=== PATIENT | male | born 1960 | race Caucasian/White ===

== ENCOUNTER 2016-07-09 12:57 | Emergency (ER) | payer BC ==
[~2016-07-09] VITALS: Ht 172.7 cm; Wt 68.0 kg
[2016-07-09 13:13] VITALS: BP 147/88; PULSE 99; RESP 15; TEMP 97.1; O2SAT 95
--- NOTE | 2016-07-09 13:18 | NUR ---
Pt to bed 7, placed in gown for evaluation
--- NOTE | 2016-07-09 13:20 | NUR ---
pt. presented to ER AAOx4 c/o " generalized body weakness for weeks now" states that Dr. Carpenter pt.'s PCP had given hin a referal to neurologist however today the pain in his legs was bothering him too much, states pain radiates to upper body, pain 6/10, states he has been starting to loose balance, denies N/V/D, states Hx of Falls, clear speech, follows commands, lungs clear to auscultation, denies SOB, denies CP
--- NOTE | 2016-07-09 13:47 | NUR ---
DR. HARTMANN AT BEDSIDE EXAMINING THE PT.
--- NOTE | 2016-07-09 13:50 | NUR ---
X Ray at bedside
[2016-07-09 14:10] LABS: BASOPHILS % (AUTO) 0.5 % (0.0-2.0); HEMOGLOBIN 12.9 g/dL (14.0-18.0); LYMPHOCYTES # (AUTO) 1.1 K/uL (1.0-5.5); LYMPHOCYTES % (AUTO) 11.5 % (20.5-51.5); MEAN CORPUSCULAR HEMOGLOBIN 37 pg (27-31); MEAN CORPUSCULAR HGB CONC 34 % (32-36); MEAN CORPUSCULAR VOLUME 108 fL (79.0-98.0); MONOCYTES # (AUTO) 0.6 K/uL (0.0-1.0); MONOCYTES % (AUTO) 6.7 % (1.7-9.3); NEUTROPHILS # (AUTO) 7.6 K/uL (1.8-7.7); NEUTROPHILS % (AUTO) 81.3 % (40.0-70.0); PLATELET COUNT (AUTO) 163 K/uL (130-430); RED BLOOD CELL COUNT(AUTO) 3.52 MIL/uL (4.2-6.2); RED CELL DISTRIBUTION WIDTH 17.3 % (9.0-15.0); WHITE BLOOD COUNT (AUTO) 9.3 K/uL (4.8-10.8)
[2016-07-09 14:26] LABS: CALCIUM 7.9 mg/dL (8.4-11.0); CREATININE 0.7 mg/dL (0.55-1.30); POTASSIUM 3.8 mmol/L (3.5-5.1)
[2016-07-09 14:28] LABS: INR 1.1 (0.80-1.20); PROTHROMBIN TIME 12.2 SECS (9.5-12.5)
[2016-07-09 14:43] LABS: FREE T4 (FREE THYROXINE) 0.7 ng/dL (0.6-1.6); TOTAL BILIRUBIN 1.2 mg/dL (0.0-1.0); TOTAL PROTEIN, SERUM 7.3 g/dL (6.4-8.3)
--- NOTE | 2016-07-09 14:48 | NUR ---
pt. denies any medical Hx and denies taking any prescription medication
[2016-07-09 15:10] VITALS: BP 129/71; PULSE 78; RESP 17; TEMP 98; O2SAT 98
[2016-07-09 15:10] LABS: BILIRUBIN,URINE 2+ (NEGATIVE); BLOOD, URINE NEGATIVE (NEGATIVE); CLARITY/URINE CLEAR (CLEAR); KETONES,URINE 2+ (NEGATIVE); NITRITE, URINE NEGATIVE (NEGATIVE); PH,URINE 5.5 (5.0-8.0); PROTEIN URINE 1+ (NEGATIVE)
--- NOTE | 2016-07-09 15:10 | NUR ---
Patient given written and verbal discharge instructions and verbalizes understanding. ER MD DR. HARTMANN discussed with patient the results and treatment provided. Patient in stable condition. ID arm band removed. NO RX given. Patient educated on pain management and to follow up with PMD. Pain Scale 0/10 Opportunity for questions provided and answered.
[2016-07-09 15:21] LABS: COLOR,URINE AMBER (YELLOW); GLUCOSE,URINE NEGATIVE (NEGATIVE); LEUKOCYTE ESTERASE ,URINE 1+ (NEGATIVE)
[2016-07-09 15:23] LABS: BACTERIA,URINE FEW /HPF (None Seen); MUCUS,URINE 2+ /LPF (None Seen); RBC,URINE NONE SEEN /HPF (0-3)
== END 2016-07-09 15:10 | disposition home or self-care (01) ==
LOC: SED 12:57
DX: R53.1 Weakness (principal); R42 Dizziness and giddiness; R20.0 Anesthesia of skin
CPT/HCPCS: 36415; 71010; 80053; 81000-TC; 83880; 84439; 84484; 85025; 85610-TC; 93005; 99285

== ENCOUNTER 2016-07-10 09:29 | Emergency (ER) | payer BC ==
[~2016-07-10] VITALS: Ht 172.7 cm; Wt 68.0 kg
[2016-07-10 09:34] VITALS: BP_SYST 138
--- NOTE | 2016-07-10 09:42 | NUR ---
ambulated to bed 4
--- NOTE | 2016-07-10 09:55 | NUR ---
Dr. Mehta at bedside for evaluation. ER tests from yesterday reviewed with pt. Pt admits to chronic alcoholism and states that he wants help. Family at bedside.
[2016-07-10] MEDS ORDERED: ONDANSETRON 4 MG ODT TAB PO ONE (10:00)
[2016-07-10 10:09] VITALS: BP_SYST 138
--- NOTE | 2016-07-10 10:09 | NUR ---
Patient given written and verbal discharge instructions and verbalizes understanding. ER MD discussed with patient the results and treatment provided. Given referals for outpatient substance and alcohol abuse programs. Patient in stable condition. ID arm band removed. No Rx given. Patient educated on pain management and to follow up with PMD. Pain Scale 0/10. Opportunity for questions provided and answered.
== END 2016-07-10 10:09 | disposition home or self-care (01) ==
LOC: SED 09:29
DX: F10.10 Alcohol abuse, uncomplicated (principal)
CPT/HCPCS: 99282; Q0162

== ENCOUNTER 2016-07-12 22:10 | Inpatient (IN) | payer BC ==
[~2016-07-12] VITALS: Ht 170.2 cm; Wt 73.5 kg
[2016-07-12 22:10] VITALS: BP_SYST 126
[2016-07-12] MEDS ORDERED: ONDANSETRON HCL 4 MG/2 ML VIAL IVP ONE (22:30)
[2016-07-12] MEDS ORDERED: NACL 0.9% 1,000 ML IV ONE (22:30)
[2016-07-12] MEDS ORDERED: LORazepam 2 MG/ML VIAL (FOR ER USE) IVP ONE (22:30)
[2016-07-12 22:44] LABS: BASOPHILS # (AUTO) 0.1 K/uL (0.0-0.2); BASOPHILS % (AUTO) 0.6 % (0.0-2.0); EOSINOPHILS % (AUTO) 0.3 % (0.0-4.0); HEMATOCRIT 33.3 % (36-54); HEMOGLOBIN 11.4 g/dL (14.0-18.0); LYMPHOCYTES % (AUTO) 11.1 % (20.5-51.5); MEAN CORPUSCULAR HEMOGLOBIN 38 pg (27-31); MEAN CORPUSCULAR HGB CONC 34 % (32-36); MEAN CORPUSCULAR VOLUME 112 fL (79.0-98.0); MONOCYTES # (AUTO) 0.6 K/uL (0.0-1.0); MONOCYTES % (AUTO) 6.8 % (1.7-9.3); NEUTROPHILS # (AUTO) 7.4 K/uL (1.8-7.7); NEUTROPHILS % (AUTO) 81.2 % (40.0-70.0); PLATELET COUNT (AUTO) 105 K/uL (130-430); RED BLOOD CELL COUNT(AUTO) 2.98 MIL/uL (4.2-6.2); RED CELL DISTRIBUTION WIDTH 16.9 % (9.0-15.0); WHITE BLOOD COUNT (AUTO) 9.1 K/uL (4.8-10.8)
[2016-07-12 22:53] LABS: CALCIUM 9.1 mg/dL (8.4-11.0); CREATININE 0.91 mg/dL (0.55-1.30); POTASSIUM 3.1 mmol/L (3.5-5.1)
[2016-07-12 22:57] LABS: ALBUMIN 2.9 g/dL (3.4-4.8); TOTAL BILIRUBIN 1.9 mg/dL (0.0-1.0); TOTAL PROTEIN, SERUM 6.9 g/dL (6.4-8.3)
[2016-07-12] MEDS ORDERED: FOLIC ACID 1 MG, THIAMINE HCL 100 MG, MAGNESIUM SULFATE 1 GM, MVI 10 ML in NACL 0.9% 1,... IV ONE (23:30)
[2016-07-12] MEDS ORDERED: ACET325T53 PO (23:58)
[2016-07-12] MEDS ORDERED: HAL5 PO (23:59)
[2016-07-12] MEDS ORDERED: ACET-2165 PO (23:59)
[2016-07-13] VITALS (14 sets, daily range): BP systolic 106–166
[2016-07-13] MEDS ORDERED: BEN50 PO (00:01)
[2016-07-13] MEDS ORDERED: MAGN400O4 PO (00:01)
[2016-07-13] MEDS ORDERED: ANT30 PO (00:02)
[2016-07-13] MEDS ORDERED: LORazepam 2 MG/ML VIAL (FOR ER USE) IVP ONE (00:45)
[2016-07-13] MEDS ORDERED: FOLIC ACID 1 MG, THIAMINE HCL 100 MG, MAGNESIUM SULFATE 1 GM, MVI 10 ML in NACL 0.9% 1,... IV ONE (01:45)
[2016-07-13] MEDS ORDERED: LORazepam 2 MG/ML VIAL IVP PRN (01:45)
[2016-07-13] MEDS: LORazepam 2 MG/ML VIAL IVP PRN ×2 (03:03→05:51)
[2016-07-13] MEDS ORDERED: MVI 10 ML VIAL IV ONE (03:13)
[2016-07-13] MEDS ORDERED: THIAMINE HCL 100 MG/ML VIAL ONE (03:13)
[2016-07-13] MEDS ORDERED: MAGNESIUM SULFATE 1 GM/2 ML VIAL ONE (03:15)
[2016-07-13] MEDS ORDERED: FOLIC ACID 5 MG/ML VIAL IV ONE (03:16)
[2016-07-13] MEDS: chlordiazePOXIDE HCL 10 MG CAPSULE PO SCH ×4 (05:55→23:03)
[2016-07-13 06:49] LABS: ALANINE AMINOTRANSFERASE 72 U/L (12-78); ALBUMIN 2.6 g/dL (3.4-4.8); ASPARTATE AMINOTRANSFERASE 146 U/L (10-37); CALCIUM 8.2 mg/dL (8.4-11.0); CHLORIDE 107 mmol/L (98-107); CREATININE 0.66 mg/dL (0.55-1.30); GLUCOSE 75 mg/dL (70-99); SODIUM SERUM 137 mmol/L (136-145); TOTAL BILIRUBIN 1.9 mg/dL (0.0-1.0); TOTAL PROTEIN, SERUM 6.4 g/dL (6.4-8.3); UREA NITROGEN, BLOOD 5 mg/dL (8-21)
[2016-07-13 06:52] LABS: HEMATOCRIT 33.4 % (36-54); HEMOGLOBIN 10.9 g/dL (14.0-18.0); MEAN CORPUSCULAR HEMOGLOBIN 36 pg (27-31); MEAN CORPUSCULAR HGB CONC 33 % (32-36); MEAN CORPUSCULAR VOLUME 112 fL (79.0-98.0); PLATELET COUNT (AUTO) 110 K/uL (130-430); RED BLOOD CELL COUNT(AUTO) 2.99 MIL/uL (4.2-6.2); RED CELL DISTRIBUTION WIDTH 17.3 % (9.0-15.0)
[2016-07-13 06:55] LABS: ANION GAP > 3 (5-15); GFR AFRICAN AMERICAN 162 mL/min (>90)
[2016-07-13 08:04] LABS: WHITE BLOOD COUNT (AUTO) 7.6 K/uL (4.8-10.8)
[2016-07-13] MEDS: FOLIC ACID 1 MG, THIAMINE HCL 100 MG, MAGNESIUM SULFATE 1 GM, MVI 10 ML in NACL 0.9% 1,... IV SCH (08:34)
[2016-07-13] MEDS: LACTULOSE 20 GM/30 ML UDC PO SCH ×4 (08:37→20:59)
[2016-07-13 09:27] LABS: ATYPICAL LYMPHOCYTES % 0 % (0-0); BAND % (MANUAL) 0 % (0-6); BASOPHILS % (MANUAL) 0 % (0-2); EOSINOPHILS % (MANUAL) 1 % (0-7); LYMPHOCYTES % (MANUAL) 20 % (20-46); MONOCYTES % (MANUAL) 7 % (0-11)
[2016-07-13 09:46] LABS: ABG TOTAL HEMOGLOBIN 11.7 G/dL (12.0-18.0); BLOOD GAS BASE EXCESS 0.4 mmol/L (-3.0-3.0); BLOOD GAS COHb% 0.6 % (0.5-1.5); BLOOD GAS PH 7.416 (7.350-7.450); BLOOD O2Hb% 93.1 % (94.0-97.0)
[2016-07-13 09:47] LABS: BLOOD GAS HHB 5.8 % (0.0-6.0)
[2016-07-13 10:12] LABS: INR 1.2 (0.80-1.20); PROTHROMBIN TIME 12.5 SECS (9.5-12.5)
[2016-07-13] MEDS ORDERED: BANANA BAG 1 EA, FOLIC ACID 1 MG, THIAMINE HCL 100 MG, MAGNESIUM SULFATE 1 GM, MVI 10 M... IV SCH ×5 (11:00)
[2016-07-13] MEDS: D5NS 1,000 ML IV SCH ×2 (14:45→21:00)
[2016-07-14 00:54] VITALS: BP_SYST 129
[2016-07-14] MEDS: FOLIC ACID 1 MG, THIAMINE HCL 100 MG, MAGNESIUM SULFATE 1 GM, MVI 10 ML in NACL 0.9% 1,... IV SCH (02:02)
[2016-07-14 03:13] VITALS: BP_SYST 133
[2016-07-14] MEDS: chlordiazePOXIDE HCL 10 MG CAPSULE PO SCH ×4 (05:12→23:26)
[2016-07-14] MEDS: D5NS 1,000 ML IV SCH ×3 (05:13→23:26)
[2016-07-14 08:00] VITALS: BP_SYST 117
[2016-07-14] MEDS: LACTULOSE 20 GM/30 ML UDC PO SCH ×3 (09:24→20:58)
[2016-07-14] MEDS ORDERED: IOHEXOL 100 ML IV ONE (09:40)
[2016-07-14] MEDS ORDERED: DIATR MEGLU/DIATRIZ SOD 30 ML SOLUTION PO ONE (09:40)
[2016-07-14 12:00] VITALS: BP_SYST 148
[2016-07-14 12:08] LABS: CALCIUM 7.8 mg/dL (8.4-11.0); CHLORIDE 108 mmol/L (98-107); CREATININE 0.75 mg/dL (0.55-1.30); GLUCOSE 106 mg/dL (70-99); POTASSIUM 3.5 mmol/L (3.5-5.1); SODIUM SERUM 136 mmol/L (136-145); UREA NITROGEN, BLOOD 3 mg/dL (8-21)
[2016-07-14 12:12] LABS: ALANINE AMINOTRANSFERASE 60 U/L (12-78); ALBUMIN 2.4 g/dL (3.4-4.8); ASPARTATE AMINOTRANSFERASE 116 U/L (10-37); TOTAL BILIRUBIN 1.4 mg/dL (0.0-1.0); TOTAL PROTEIN, SERUM 6.4 g/dL (6.4-8.3)
[2016-07-14 12:15] LABS: ANION GAP < 3 (5-15); GFR AFRICAN AMERICAN 140 mL/min (>90)
[2016-07-14 12:21] LABS: BASOPHILS % (AUTO) 0.5 % (0.0-2.0); EOSINOPHILS # (AUTO) 0.1 K/uL (0.0-0.4); LYMPHOCYTES # (AUTO) 0.9 K/uL (1.0-5.5); MEAN CORPUSCULAR HEMOGLOBIN 38 pg (27-31); MEAN CORPUSCULAR HGB CONC 33 % (32-36); MEAN CORPUSCULAR VOLUME 112 fL (79.0-98.0); RED CELL DISTRIBUTION WIDTH 17.7 % (9.0-15.0)
[2016-07-14 12:23] LABS: HEMATOCRIT 33.2 % (36-54); HEMOGLOBIN 11.1 g/dL (14.0-18.0); NEUTROPHILS % (AUTO) 82.3 % (40.0-70.0); PLATELET COUNT (AUTO) 141 K/uL (130-430); RED BLOOD CELL COUNT(AUTO) 2.94 MIL/uL (4.2-6.2)
[2016-07-14 12:24] LABS: EOSINOPHILS % (AUTO) 0.9 % (0.0-4.0); LYMPHOCYTES % (AUTO) 10.6 % (20.5-51.5); MONOCYTES # (AUTO) 0.5 K/uL (0.0-1.0); MONOCYTES % (AUTO) 5.7 % (1.7-9.3); NEUTROPHILS # (AUTO) 6.9 K/uL (1.8-7.7); WHITE BLOOD COUNT (AUTO) 8.4 K/uL (4.8-10.8)
[2016-07-14 16:00] VITALS: BP_SYST 122
[2016-07-14 19:20] VITALS: BP_SYST 126
[2016-07-15 00:08] VITALS: BP_SYST 125
[2016-07-15 04:45] VITALS: BP_SYST 130
[2016-07-15] MEDS: chlordiazePOXIDE HCL 10 MG CAPSULE PO SCH ×3 (06:21→17:24)
[2016-07-15] MEDS: FOLIC ACID 1 MG, THIAMINE HCL 100 MG, MAGNESIUM SULFATE 1 GM, MVI 10 ML in NACL 0.9% 1,... IV SCH (08:43)
[2016-07-15 08:53] VITALS: BP_SYST 127
[2016-07-15] MEDS ORDERED: RIFAXIMIN 550 MG TABLET PO ONE (09:45)
[2016-07-15 11:50] VITALS: BP_SYST 133
[2016-07-15 15:58] VITALS: BP_SYST 145
[2016-07-15 18:06] VITALS: BP_SYST 140
[2016-07-15] MEDS ORDERED: RIFAXIMIN 550 MG TABLET PO SCH (21:00)
== END 2016-07-15 18:27 | disposition home or self-care (01) | DRG 442 ==
LOC: SED 22:10 → SIC 23:28 → STU 07-13 14:18 → SMU 07-14 13:11
PROVIDERS: ADMIT Internal Medicine Hospice and Palliative Medicine; ATTEND Internal Medicine Hospice and Palliative Medicine
DX: K72.90 Hepatic failure, unspecified without coma (principal); F10.231 Alcohol dependence with withdrawal delirium; K76.0 Fatty (change of) liver, not elsewhere classified; Z79.899 Other long term (current) drug therapy
CPT/HCPCS: 36415; 36600; 70450-TC; 76700-TC; 78226; 80053; 82140-TC; 82803-TC; 83690-TC; 83735-TC; 84443-TC; 85007; 85025; 85027; 85610-TC; 87081; 93005; A9537; J2060; J2405; J3411; J3475; J3490; J7030; J7042; Q9964; Q9967